=== PATIENT | male | born 1930 | race Caucasian/White ===

== ENCOUNTER → 2016-04-23 | Outpatient (CLI) | payer OTHER, MEDICARE ==
[~2016-04-23] MED LIST: IOPAMIDOL (ISOVUE-300) 100 ML BTL IV ONE
--- NOTE | 2016-04-23 12:31 | CT ---
CT Brain Without and With Contrast at 1105 hours History: Dementia, F03.90. Comparison: None. Technique: Axial computed tomographic images of the brain prior to and during the uneventful intrave nous administration of 85 mL Isovue-300 contrast. Dose reduction techniques were utilized. CT Brain Without Contrast Findings: Ventricles, cisterns, and sulci are diffusely widened, consisten t mild cerebral atrophy. No hydrocephalus, midline shift/herniation, or epidural/subdural hematomas. No intraparenchymal hemorrhage, definite infarct, or mass effect. Bone windows demonstrate no displac ed fractures. Paranasal sinuses and mastoid air cells are clear. CT Brain With Contrast Findings: No evidence of intraaxial enhancing lesions or abnormal leptomeninge al enhancement. No intraluminal filling defects in the [place] vessels. No flow-limiting windy nosis, arterial occlusion, or arteriovenous malformations. Superior sagittal sinus and transverse sin uses are patent. Impression: 1. Mild diffuse cerebral atrophy. 2. No acute infarct, acute hemorrhage, hydrocephalus or mass effect. 3. No epidural or subdural hematomas. 4. No evidence of enhancing lesions.
== END ==
LOC: CIMAGING 09:48
PROVIDERS: ATTEND Family Medicine Geriatric Medicine
DX: F03.90 Unspecified dementia, unspecified severity, without behavioral disturbance, psychotic disturbance, mood disturbance, and anxiety (principal); I10 Essential (primary) hypertension
CPT/HCPCS: 70470; Q9967; 80053-PO; 82565-PO; 82607-90; 84443-PO; 85025-PO